=== PATIENT | male | born 1960 | race Two or more races ===

== ENCOUNTER 2023-07-08 17:04 | Emergency (ER) | payer SELFPAY ==
[2023-07-08 17:14] VITALS: BP 133/83; PULSE 74; RESP 18; TEMP 98.3; BMI 22.3
== END 2023-07-08 18:08 | disposition home or self-care (01) ==
LOC: JERFT 17:04
DX: R21 Rash and other nonspecific skin eruption (principal); L29.9 Pruritus, unspecified; L25.5 Unspecified contact dermatitis due to plants, except food
CPT/HCPCS: 99283-25